=== PATIENT | male | born 1960 | race Caucasian/White ===

== ENCOUNTER 2018-06-30 15:59 | Emergency (ER) | payer SELFPAY ==
[~2018-06-30] VITALS: Ht 167.6 cm; Wt 87.5 kg
[2018-06-30 16:14] VITALS: BP 142/89
--- NOTE | 2018-06-30 16:19 | NUR ---
PT AMBULATES TO BED 4
[2018-06-30] MEDS ORDERED: ceFAZolin 1,000 MG VIAL IM ONE (16:35)
--- NOTE | 2018-06-30 16:38 | NUR ---
PT A&OX4, BREATHING EVEN AND UNLABORED. C/O "BED BUGS" ITCHING AND BLE PAIN X LAST NIGHT. "LEFT LEG HURTS MORE" PAIN 8/10 EXACERBATED BY PALPATION. SKIN IS DRY.
--- NOTE | 2018-06-30 16:42 | NUR ---
PT EVALUATED BY PROVIDER
[2018-06-30 17:21] VITALS: BP 139/72
--- NOTE | 2018-06-30 17:21 | NUR ---
Patient discharged with v/s stable. Written and verbal after care instructions given and explained. Patient alert, oriented and verbalized understanding of instructions. Ambulatory with steady gait. All questions addressed prior to discharge. ID band removed. Patient advised to follow up with PMD. Rx of SEPTRA, MOTRIN, KEFLEX given. Patient educated on indication of medication including possible reaction and side effects. Opportunity to ask questions provided and answered.
== END 2018-06-30 17:21 | disposition home or self-care (01) ==
LOC: MED 15:59
DX: S80.862A Insect bite (nonvenomous), left lower leg, initial encounter (principal); S80.261A Insect bite (nonvenomous), right knee, initial encounter; L03.116 Cellulitis of left lower limb; L03.115 Cellulitis of right lower limb; L08.9 Local infection of the skin and subcutaneous tissue, unspecified; Z79.1 Long term (current) use of non-steroidal anti-inflammatories (NSAID); W57.XXXA Bitten or stung by nonvenomous insect and other nonvenomous arthropods, initial encounter; Y93.89 Activity, other specified; Y92.89 Other specified places as the place of occurrence of the external cause; Y99.8 Other external cause status
CPT/HCPCS: 90471; 90715; 96372; 99283; J0690

== ENCOUNTER 2018-08-16 13:53 | Emergency (ER) | payer SELFPAY ==
[~2018-08-16] VITALS: Ht 167.6 cm; Wt 86.4 kg
[2018-08-16 14:04] VITALS: BP 142/82
--- NOTE | 2018-08-16 14:07 | NUR ---
PT RETURNED TO LOBBY IN STABLE CONDITION
--- NOTE | 2018-08-16 14:22 | NUR ---
PT AMBULATED TO ER BED 04
--- NOTE | 2018-08-16 14:28 | NUR ---
Note undone in EDM - 08/16/18 at 1437 by [facility] C/O PAIN,REDNESS & SWELLING ON LEFT THIGH AND RT LOWER ABDOMEN OF BACK X 1 MONTH. PATIENT STATES PAIN OF 8/10 AT THIS TIME. PATIENT POSITIONED FOR COMFORT; HOB ELEVATED; BEDRAILS UP X2; BED DOWN. ER MADE AWARE OF PT STATUS.
--- NOTE | 2018-08-16 14:28 | NUR ---
C/O PAIN,REDNESS & SWELLING ON LEFT THIGH AND RLQ ABDOMEN X 1 MONTH. PATIENT STATES PAIN OF 8/10 AT THIS TIME. PATIENT POSITIONED FOR COMFORT; HOB ELEVATED; BEDRAILS UP X2; BED DOWN. ER MD MADE AWARE OF PT STATUS.
--- NOTE | 2018-08-16 14:37 | NUR ---
Patient being evaluated by DARION KEATING at bedside.
[2018-08-16] MEDS ORDERED: LIDOCAINE 1% 500 MG/50 ML VIAL INJ SCH (15:25)
[2018-08-16] MEDS ORDERED: IBUPROFEN 600 MG TAB PO ONE (15:25)
[2018-08-16] MEDS ORDERED: LIDOCAINE MPF 1% 5mL VIAL ONE (15:47)
--- NOTE | 2018-08-16 16:20 | NUR ---
I&D R LOWER ABD DONE.PT TOLERATED PROCEDURE WELL.
[2018-08-16 17:01] VITALS: BP 131/78
--- NOTE | 2018-08-16 17:01 | NUR ---
Patient discharged with v/s stable. Written and verbal after care instructions given and explained. Patient alert, oriented and verbalized understanding of instructions. Ambulatory with steady gait. All questions addressed prior to discharge. ID band removed. Patient advised to follow up with PMD. Rx of BACTRIM,KEFLEX,NORCO & IBUPROFEN given. Patient educated on indication of medication including possible reaction and side effects. Opportunity to ask questions provided and answered.
== END 2018-08-16 17:01 | disposition home or self-care (01) ==
LOC: MED 13:53
DX: L02.211 Cutaneous abscess of abdominal wall (principal)
CPT/HCPCS: 10060; 99283; J2001

== ENCOUNTER 2018-08-18 12:56 | Emergency (ER) | payer SELFPAY ==
[~2018-08-18] VITALS: Ht 167.6 cm; Wt 86.7 kg
[2018-08-18 13:07] VITALS: BP 142/68
--- NOTE | 2018-08-18 13:08 | NUR ---
PATIENT AMBULATED TO ER BED 3
--- NOTE | 2018-08-18 13:10 | NUR ---
58/M BIB SELF FOR RLQ ABD WOUND RECHECK.PATIENT STATES PAIN OF 6/10 AT THIS TIME. PATIENT POSITIONED FOR COMFORT; HOB ELEVATED; BEDRAILS UP X1; BED DOWN. ER MD MADE AWARE OF PT STATUS.
--- NOTE | 2018-08-18 14:00 | NUR ---
Patient being evaluated by DR CELIS at bedside.
[2018-08-18] MEDS ORDERED: CLINDAMYCIN 600 MG/4 ML VIAL IM ONE (14:15)
[2018-08-18] MEDS ORDERED: NEOMYCIN/POLYMYXIN/BACITRACIN 0.9 GM/1 PKT TP ONE (14:15)
[2018-08-18 14:52] VITALS: BP 132/60
== END 2018-08-18 14:52 | disposition home or self-care (01) ==
LOC: MED 12:56
DX: L02.211 Cutaneous abscess of abdominal wall (principal); L02.416 Cutaneous abscess of left lower limb
CPT/HCPCS: 96372; 99283; J3490

== ENCOUNTER 2018-11-30 15:49 | Emergency (ER) | payer SELFPAY ==
[~2018-11-30] VITALS: Ht 195.6 cm; Wt 89.8 kg
[2018-11-30 16:11] VITALS: BP 120/75
--- NOTE | 2018-11-30 16:30 | NUR ---
PT PRESENTED TO ED C/O RIGHT THIGH ABSCESS AND RIGHT GROIN WITH SMALL BUMP C/O PAIN X1 WEEK A HALF. RIGHT THIGH NOTED WITH BUMP WITH SCAB STILL HARD TO TOUCH NO DRAINAGE, NO REDNESS NOTED, RIGHT GROIN NOTED WITH SMALL BUMP, NO REDNESS BUT C/O PAIN TO TOUCH 6/10 NO DRAINAGE NOTED. PT WITH HX OF ABSCESS TO LEFT THIGH AND WAS GIVEN ANTIBIOTIC PER PT STATEMENT. AAOX4, RR EVEN UNLABORED, ED MD DR. CONTRERAS MADE AWARE, WILL CONTINUE TO MONITOR CLOSELY.
[2018-11-30 18:06] VITALS: BP 120/75
== END 2018-11-30 18:09 | disposition home or self-care (01) ==
LOC: MED 15:49
DX: L02.415 Cutaneous abscess of right lower limb (principal)
CPT/HCPCS: 99282

== ENCOUNTER 2021-11-24 18:27 | Emergency (ER) | payer MEDICAID ==
[~2021-11-24] VITALS: Ht 167.6 cm; Wt 66.7 kg
[~2021-11-24 18:27] MED LIST: CYCL7.5T21 PO; HYDR-2849 PO
[2021-11-24 18:44] VITALS: BP 142/67
--- NOTE | 2021-11-24 19:30 | NUR ---
61 Y/O MALE BIB SELF C/O OF GENERALIZED ABD PAIN X2 DAYS, N/V. PER PT HE ATE A HAMBURGER AND STARTED HAVING N/V. NKA PMH: DM
--- NOTE | 2021-11-24 19:33 | NUR ---
Pt report given to CHELSI TRAVIS. Transfer of care at this time.
--- NOTE | 2021-11-24 20:55 | NUR ---
DR CONTI AT BEDSIDE FOR EXAM
[2021-11-24] MEDS ORDERED: ONDANSETRON 4 MG/2 ML VIAL IVP ONE (21:05)
[2021-11-24] MEDS ORDERED: MORPHINE SULFATE 4 MG/ML SYR IVP ONE (21:05)
[2021-11-24] MEDS ORDERED: NACL 0.9% 1,000 ML IV ONE (21:05)
--- NOTE | 2021-11-24 21:30 | NUR ---
TO CT VIA [facility]
[2021-11-24 21:31] LABS: BASOPHILS % (AUTO) 0.2 % (0.0-2.0); EOSINOPHILS # (AUTO) 0.1 K/uL (0-0.4); EOSINOPHILS % (AUTO) 0.6 % (0.0-4.0); HEMATOCRIT 35.2 % (36-52); HEMOGLOBIN 11.8 g/dL (12.0-18.0); LYMPHOCYTES % (AUTO) 20.9 % (20.5-51.1); MEAN CORPUSCULAR HEMOGLOBIN 30 pg (27-31); MEAN CORPUSCULAR HGB CONC 33 g/dL (33-37); MEAN CORPUSCULAR VOLUME 88.1 fL (80-94); MONOCYTES % (AUTO) 9.8 % (1.7-9.3); NEUTROPHILS # (AUTO) 6.7 K/uL (1.8-7.7); NEUTROPHILS % (AUTO) 68.5 % (42.2-75.2); PLATELET COUNT (AUTO) 254 K/uL (140-450); RED BLOOD CELL COUNT(AUTO) 3.99 MIL/uL (4.20-6.10); RED CELL DISTRIBUTION WIDTH 14.4 % (11.6-13.7); WHITE BLOOD COUNT (AUTO) 9.8 K/uL (4.8-10.8)
--- NOTE | 2021-11-24 21:40 | NUR ---
RETURNED FROM CT
[2021-11-24 21:50] LABS: ALBUMIN 3.9 g/dL (3.4-5.0); ANION GAP 8.8 (8-16); CARBON DIOXIDE 32.6 mmol/L (21-32); CREATININE 0.9 mg/dL (0.6-1.3); POTASSIUM 3.4 mmol/L (3.5-5.1); TOTAL BILIRUBIN 0.6 mg/dL (0.0-1.0)
[2021-11-24 22:00] VITALS: BP 138/72
--- NOTE | 2021-11-24 23:14 | NUR ---
Patient discharged by Dr Martinez with v/s stable. Written and verbal after care instructions given and explained. Patient verbalized understanding. Ambulatory with steady gait. All questions addressed prior to discharge. Advised to follow up with PMD.
[2021-11-24 23:36] LABS: APPEARANCE,URINE CLEAR (CLEAR); BILIRUBIN,URINE NEGATIVE (NEGATIVE); BLOOD, URINE TRACE-I (NEGATIVE); COLOR,URINE YELLOW (YELLOW); LEUKOCYTE ESTERASE ,URINE NEGATIVE (NEGATIVE); NITRITE, URINE NEGATIVE (NEGATIVE); UGLUCOSE NEGATIVE (NEGATIVE)
[2021-11-24 23:41] LABS: RBC,URINE 0-5 /HPF (0-5); WBC,URINE 20-60 /HPF (0-5)
[2021-11-26] MEDS ORDERED: HYDR-2849 PO (10:23)
[2021-11-26] MEDS ORDERED: CYCL-711 PO (10:23)
== END 2021-11-24 23:14 | disposition home or self-care (01) ==
LOC: MED 18:27
DX: A05.9 Bacterial foodborne intoxication, unspecified (principal); R10.9 Unspecified abdominal pain; R11.0 Nausea; E11.9 Type 2 diabetes mellitus without complications; Z79.899 Other long term (current) drug therapy
CPT/HCPCS: 36415; 74176; 80053; 81001; 82948; 83690; 85025; 87086; 96361; 96374; 96375; 99284; J2270; J2405; J7030